=== PATIENT | female | born 1980 | race Caucasian/White ===

== ENCOUNTER 2020-01-23 15:31 | Emergency (ER) | payer BC ==
--- NOTE | 2020-01-23 15:38 | UC ---
FLU HPI - HPI Summary HPI Summary: 39 yo female presents with fever. She tells me that she works at the [employer] and has been working almost nonstop for the last 10 days due to the recent COVID outbreak. Middle of the night felt sweaty with chills and a scratchy throat. Today she developed a temp of 100.1F. Has not taken anything OTC for her symptoms. Denies sinus symptoms, cough, SOB, chest pain, abdominal pain, n/v. - History of Current Complaint Stated Complaint: FEVER Time Seen by Provider: 01/23/20 15:37 Hx Obtained From: Patient Onset/Duration: Sudden Onset Severity Currently: Mild Severity Initially: Mild Pain Intensity: 3 Pain Scale Used: 0-10 Numeric - Allergy/Home Medications Allergies/Adverse Reactions: Allergies Allergy/AdvReac Type Severity Reaction Status Date / Time No Known Allergies Allergy Verified 01/23/20 15:48 Home Medications: Home Medications Amoxicillin PO (*) [Amoxicillin 500 MG CAP*] 500 mg PO Q12H #20 cap 01/23/20 [Rx ] Cholecalciferol TAB* [Vitamin D TAB*] 1 tab PO DAILY 01/23/20 [History Confirmed 01/23/20] PMH/Surg Hx/FS Hx/Imm Hx - Additional Past Medical History Additional PMH: None - Surgical History Surgical History: Yes Surgery Procedure, Year, and Place: appy; wisdom teeth - Family History Known Family History: Positive: None - Social History Occupation: Employed Full-time Lives: With Family Alcohol Use: None Substance Use Type: None Smoking Status (MU): Never Smoked Tobacco - Immunization History Most Recent Influenza Vaccination: fall 2012 Review of Systems All Other Systems Reviewed And Are Negative: No Constitutional: Positive: Fever Skin: Positive: Negative Eyes: Positive: Negative ENT: Positive: Sore Throat Respiratory: Positive: Negative Cardiovascular: Positive: Negative Gastrointestinal: Positive: Negative Neurovascular: Positive: Negative Neurological/Mental Status: Positive: Negative Psychological: Positive: Negative Physical Exam - Summary Physical Exam Summary: GENERAL: NAD. WDWN. No pain distress. SKIN: No rashes, sores, lesions, or open wounds. HEENT: Head: AT/NC Eyes: Conjunctiva clear without inflammation or discharge. Ears: Hearing grossly normal. TMs intact, no bulging, erythema, or edema. Nose: Nasal mucosa pink and moist. NTTP maxillary and frontal sinus. Throat: Posterior oropharynx mild erythema and 2+ tonsillar enlargement. No exudates. Uvula midline. No hoarse voice or muffled voice. NECK: Supple. Mild ttp tonsillar LAD. CHEST: CTAB. No r/r/w. No accessory muscle use. Breathing comfortably and in no distress. CV: RRR. Pulses intact. Cap refill <2seconds NEURO: Alert. PSYCH: Age appropriate behavior. Triage Information Reviewed: Yes Vital Signs: Laboratory Tests 01/23/20 01/23/20 16:04 16:07 Influenza A (Rapid) Negative Influenza B (Rapid) Negative Group A Strep Rapid Positive H Vital Signs: Temp Pulse Resp BP Pulse Ox 100.5 F 128 16 127/71 99 01/23/20 17:00 01/23/20 17:00 01/23/20 17:00 01/23/20 17:00 01/23/20 17:00 Vital Signs Reviewed: Yes Flu Course/Dx - Course Course Of Treatment: POC flu negative. POC strep positive. Rx for amoxicillin - Differential Dx/Diagnosis Provider Diagnosis: Strep throat Discharge ED - Sign-Out/Discharge Documenting (check all that apply): Patient Departure All imaging exams completed and their final reports reviewed: No Studies - Discharge Plan Condition: Stable Disposition: HOME Prescriptions: Amoxicillin PO (*) [Amoxicillin 500 MG CAP*] 500 mg PO Q12H #20 cap Patient Education Materials: Strep Throat (ED) Referrals: Saloni Hargrove MD [Primary Care Provider] - - Billing Disposition and Condition Condition: STABLE Disposition: Home
[2020-01-23 16:19] LABS: Influenza A Molecular Negative (Negative); Influenza B Molecular Negative (Negative)
[2020-01-23 17:22] VITALS: BP 127/71
== END 2020-01-23 17:00 | disposition home or self-care (01) ==
LOC: UCEAST 15:31
DX: J02.0 Streptococcal pharyngitis (principal)
CPT/HCPCS: 87651; 99212; G0463